=== PATIENT | female | born 1955 | race Caucasian/White ===

== ENCOUNTER → 2016-08-24 | Outpatient (CLI) | payer OTHER ==
--- NOTE | 2016-08-24 11:46 | RAD ---
DATE: 08/24/2016 EXAM: DIGITAL SCREEN BILAT W/CAD HISTORY: Screening. Note is made of the positive family history for breast malignancy COMPARISON: 05/09/2015 This study was interpreted with the benefit of Computerized Aided Detection (CAD). FINDINGS: Breast Density: SCATTERED The breast parenchyma shows scattered fibroglandular densities. Breast parenchyma level B. There has not been a significant change in the appearance of the breasts compared to the previous exam. Lymph nodes are noted in both axilla. IMPRESSION: Benign finding BI-RADS CATEGORY: 2 BENIGN FINDING(S) RECOMMENDED FOLLOW-UP: 12M 12 MONTH FOLLOW-UP PQRS compliance statement: Patient information was entered into a reminder system with a target due date 08/24/2017 for the next mammogram. Mammography is a sensitive method for finding small breast cancers, but it does not detect them all and is not a substitute for careful clinical examination. A negative mammogram does not negate a clinically suspicious finding and should not result in delay in biopsying a clinically suspicious abnormality. "Our facility is accredited by the [employer] Mammography [employer]."
== END | disposition home or self-care (01) ==
LOC: MAMMO 11:01
PROVIDERS: ATTEND Family Medicine
DX: Z12.31 Encounter for screening mammogram for malignant neoplasm of breast (principal)
CPT/HCPCS: G0202; 77067

== ENCOUNTER → 2017-11-28 | Outpatient (CLI) | payer OTHER ==
--- NOTE | 2017-11-29 08:33 | RAD ---
DATE: 11/28/2017 EXAM: DIGITAL SCREEN BILAT W/CAD HISTORY: Screening evaluation. COMPARISON: 08/20/2013, 05/09/2015, 08/24/2016 screening mammographic exams This study was interpreted with the benefit of Computerized Aided Detection (CAD ). Breast Density: HETERO The breast parenchyma is heterogenously dense, which could reduce sensitivity of mammography. Breast parenchyma level C. FINDINGS: Parenchymal distribution is stable. No suspicious calcification clusters or distortion. In the right subareolar region, there is a 2 x 1 cm diameter well-circumscribed, well-demarcated fat density structure. IMPRESSION: Right breast spot compression recommended. Ultrasound may be needed. Annual left screening mammography is recommended. BI-RADS CATEGORY: 0 INCOMPLETE: NEEDS ADDITIONAL IMAGING EVALUATION AND/OR PRIOR MAMMOGRAMS FOR COMPARISON. RECOMMENDED FOLLOW-UP: PQRS compliance statement: Patient information was entered into a reminder system with a target due date for the next mammogram. Mammography is a sensitive method for finding small breast cancers, but it does not detect them all and is not a substitute for careful clinical examination. A negative mammogram does not negate a clinically suspicious finding and should not result in delay in biopsying a clinically suspicious abnormality. "Our facility is accredited by the [employer] Mammography [employer]." KEOND
== END | disposition home or self-care (01) ==
LOC: MAMMO 08:22
PROVIDERS: ATTEND Family Medicine
DX: Z12.31 Encounter for screening mammogram for malignant neoplasm of breast (principal)
CPT/HCPCS: 77067

== ENCOUNTER → 2017-12-16 | Outpatient (CLI) | payer OTHER ==
--- NOTE | 2017-12-16 11:47 | RAD ---
DATE: December 16, 2017. EXAM: DIGITAL DIAGNOSTIC RT, BREAST RIGHT SONOGRAM HISTORY: Further evaluation of retroareolar nodule of the right breast containing central radiolucency. No palpable abnormality. COMPARISON: 2017 and 2018 screening mammograms This study was interpreted with the benefit of Computerized Aided Detection (CAD). FINDINGS: Focal digital compression views of the retroareolar region right breast in the MLO and CC projections were performed. Again seen is a well-demarcated round smooth nodule just lateral and superior to the nipple in the retroareolar region of the right breast which measures 2.5 cm in size. It contains central fatty radiolucency. RIGHT BREAST SONOGRAM: High-resolution sonography of the retroareolar region of the right breast was performed. At the 11:30-12:00 position just behind the nipple, a heterogeneous solid nodule is seen measuring 2.0 cm x 1.1 cm x 1.5 cm in size. It contains central echogenic tissue corresponding to the radiolucency seen on the mammogram which represents fat. Therefore, this represents a benign hamartoma. 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 Recommend routine screening mammography. BI-RADS CATEGORY: 2 BENIGN FINDING RECOMMENDED FOLLOW-UP: 12M 12 MONTH FOLLOW-UP PQRS compliance statement: Patient information was entered into a reminder system with a target due date November 29, 2018 for the next mammogram. Mammography is a sensitive method for finding small breast cancers, but it does not detect them all and is not a substitute for careful clinical examination. A negative mammogram does not negate a clinically suspicious finding and should not result in delay in biopsying a clinically suspicious abnormality. "Our facility is accredited by the [employer] Mammography [employer]."
== END | disposition home or self-care (01) ==
LOC: MAMMO 10:21
PROVIDERS: ATTEND Family Medicine
DX: D24.1 Benign neoplasm of right breast (principal)
CPT/HCPCS: 76641; 77065

== ENCOUNTER → 2018-12-30 | Outpatient (CLI) | payer OTHER ==
--- NOTE | 2018-12-31 08:29 | RAD ---
DATE: 12/30/2018 8:04 AM EXAM: DIGITAL SCREEN BILAT W/CAD HISTORY: Routine screening COMPARISON: December 16, 2017 and November 28, 2017 Bilateral CC and MLO views of the breasts were performed. This study was interpreted with the benefit of Computerized Aided Detection (CAD). FINDINGS: Breast Density: HETERO The breast parenchyma Is heterogeneously dense, which could reduce sensitivity of mammography. Breast parenchyma level C Unchanged right breast retroareolar mass. No new suspicious masses, microcalcifications or architectural distortion is present to suggest malignancy in either breast. The visualized axillae are unremarkable. IMPRESSION: No mammographic evidence of malignancy. BI-RADS CATEGORY: 2 BENIGN FINDING(S) RECOMMENDED FOLLOW-UP: 12M 12 MONTH FOLLOW-UP Annual screening mammography is recommended, unless clinically indicated sooner based on symptoms or change in physical exam. PQRS compliance statement: Patient information was entered into a reminder system with a target due date one year for the next mammogram. Mammography is a sensitive method for finding small breast cancers, but it does not detect them all and is not a substitute for careful clinical examination. A negative mammogram does not negate a clinically suspicious finding and should not result in delay in biopsying a clinically suspicious abnormality. "Our facility is accredited by the [employer] Mammography [employer]."
== END | disposition home or self-care (01) ==
LOC: MAMMO 07:58
PROVIDERS: ATTEND Family Medicine
DX: Z12.31 Encounter for screening mammogram for malignant neoplasm of breast (principal); N63.10 Unspecified lump in the right breast, unspecified quadrant
CPT/HCPCS: 77067

== ENCOUNTER → 2020-06-08 | Outpatient (CLI) | payer OTHER ==
--- NOTE | 2020-06-08 09:59 | RAD ---
BILATERAL SCREENING MAMMOGRAM, 3-D History: Routine screening. Comparison: Bilateral mammogram December 30, 2018 and prior years. Diagnostic right mammogram and avtar ast ultrasound December 16, 2017. Technique: MLO and CC digital tomosynthesis (3D) images obtained. Radiologist reviewed these images on dedicated workstation. Findings: Breast Tissue Density C : The breasts are heterogeneously dense, which may obscure small masses. The upper outer subareolar right breast mass is stable. It is well-circumscribed and has internal fat density. Stable tiny intramammary lymph node upper outer posterior right breast. There are no suspicious microcalcifications or architectural distortion. IMPRESSION: No mammographic evidence of malignancy. Recommend routine screening. BI-RADS category 2: Benign findings. The images were reviewed with computer-aided detection. Patient information is entered into reminder system with a target due date for the next screening [facility] mogram. Mammography is the most sensitive method for finding small breast cancers, but it does not detect the m all and is not a substitute for careful clinical examination. A negative mammogram does not negate a clinically suspicious finding and should not result in delay in biopsying a clinically suspicious a bnormality. "Our facility is accredited by the [employer] Mammography [employer]." Electronically signed by: Ramses Leyva MD (06/08/2020 9:56 AM) [id number]
== END ==
LOC: MAMMO 09:02
PROVIDERS: ATTEND Family Medicine
DX: Z12.31 Encounter for screening mammogram for malignant neoplasm of breast (principal)
CPT/HCPCS: 77063; 77067